=== PATIENT | female | born 1985 | race Caucasian/White ===

== ENCOUNTER 2017-02-01 20:04 | Observation (INO) ==
--- NOTE | 2017-02-01 19:04 | OB/GYN Progress Note ---
Date of Encounter: 02/01/17 Time of Encounter: 19:03 - Assessment and Plan (1) Anemia during Current Visit: Yes Status: Acute Patient presenting with anemia, with indications for treatment Ordered Type and Screen Plan for transfusion (2) Non-stress test reactive on surveillance Current Visit: Yes Status: Acute (3) 28 weeks gestation of Current Visit: Yes Status: Acute Subjective - Subjective Principal diagnosis: Anemia Interval history: Ms Crum is a 31 yo F at 28 weeks and 6 days presenting due to a Hgb of 6.3 in office and subsequent evaluation for blood transfusion candidate.
--- NOTE | 2017-02-01 19:58 | Discharge Summary ---
Date of Encounter: 02/01/17 Time of Encounter: 20:27 - Discharge Diagnosis (1) Anemia during Priority: Primary Status: Acute Comments: Transfuse 2 units PRBCs and discharge home when complete. Follow up with hematology as scheduled on Saturday. (2) 28 weeks gestation of Priority: Secondary Status: Acute Comments: Follow up with routine care as scheduled (3) Non-stress test reactive on surveillance Priority: Secondary Status: Acute Comments: Reactive NST for gestational age. - Discharge Medications Home Medications: Buspirone HCl [Buspar] 10 mg PO DAILY 02/01/17 [History] Citalopram [CeleXA] 20 mg PO BID 02/01/17 [History] Cyclobenzaprine 10 mg PO DAILY 02/01/17 [History] Ferrous Sulfate [Iron] 325 mg PO BID 02/01/17 [History] Vit #108/Iron/FA [ One Tablet] 1 tab PO DAILY 02/01/17 [History ] Promethazine [Phenergan] 25 mg PO Q6HR 02/01/17 [History] Allergies/Adverse Reactions: Allergies No Known Allergies Allergy (Verified 02/01/17 19:38) Date of admission: 02/01/17 18:41 Discharging clinician: Hilda Goldberg Anticipated date of discharge: 02/01/17 - Patient Status Disposition: Home, Self-Care Condition: Good Functional capacity at discharge: independent ambulation Overall status at discharge: patient is back to baseline - Discharge Instructions Follow Up With: Katherine Glover CNM [Advanced Practice Nurse] - London Bella MD [Partnered Physician] - 02/05/17 2:20 pm - Diet and Activity Activity: resume usual activities as tolerated Diet: regular diet Hospital Course [employer] Time Attestation: Total time spent providing and/or coordinating discharge services: Time Spent: Less than 30 minutes Exam - Constitutional General appearance IM: cooperative, A&O X 3, pleasant - Respiratory Respiratory exam: Present: CTAB - Cardiovascular Cardiovascular exam IM: Present: RRR, +S1, +S2 - GI/Abdominal GI/Abdominal exam IM: normal bowel sounds - Additional comments: Uterus appropriate for gestational age FHTs 130-140's with moderate variability and 10x10 accels. Reactive Tracing - Extremities Exam Extremities exam IM: Present: normal capillary refill, normal inspection, radial pulses palpable and symetrical - Neurological Exam Neurological exam: alert, oriented X3, reflexes normal - VTE Reasons for not Prescribing Prophylaxis: Treatment not Indicated - Low risk for VTE
[2017-02-02 04:18] VITALS: BP 97/58
== END 2017-02-02 04:20 | disposition home or self-care (01) ==
LOC: 1NENULAB → 1NENUOBS 20:04
PROVIDERS: ADMIT Advanced Practice Midwife; ATTEND Advanced Practice Midwife

== ENCOUNTER → 2017-03-04 14:48 | Observation (INO) ==
[2017-03-04 12:49] LABS: Monocytes % 9.1 %
[2017-03-04 12:53] LABS: Basophils % 0.4 %; Eosinophils # 0.1 K/mcL (0.0-0.6); Eosinophils % 1.1 %; Hematocrit 31.2 % (35.3-44.9); Hemoglobin 9.2 g/dL (11.5-15.4); Immature Granulocytes % 0.4 % (0-4); Immature Platelets 7.2 % (1.1-6.1); Lymphocytes # 1.3 K/mcL (0.6-4.6); Lymphocytes % 15.7 %; Mean Corpuscular HGB Conc 29.5 g/dL (31.6-35.5); Mean Corpuscular Hemoglobin 23.5 pg (28.0-33.3); Mean Corpuscular Volume 79.8 fL (83.0-100.0); Mean Platelet Volume 9.8 fL (9.4-12.4); Monocytes # 0.8 K/mcL (0.0-1.3); Neutrophils # 6.2 K/mcL (1.6-8.9); Platelet Count 283 K/mcL (140-400); Red Blood Count 3.91 M/mcL (3.82-4.97); Red Cell Distribution Width 24.2 % (11.5-14.5); Segmented Neutrophils % 73.3 %
[2017-03-04 12:59] LABS: Protein/Creatinine Ratio,Urine 0.13 mg/mg (0-0.20)
--- NOTE | 2017-03-04 13:17 | OB/GYN Progress Note ---
Date of Encounter: 03/04/17 Time of Encounter: 13:11 - Assessment and Plan (1) Headache in Current Visit: Yes Status: Acute BP has been normal 120/71 is highest pressure. PIH panel shows known anemia Hgb 9.2 and elevated AST/ALT. Discussed with Dr. Guzman who personally evaluated the patient. Pt may be discharged, but needs follow up labs in 1 week and needs to be seen by MFM for consult and evaluation OMAR, NST and MD visit this week. Qualifiers: Trimester: third trimester Qualified Code(s): O26.893 - Other specified related conditions, third trimester; R51 - Headache (2) 33 weeks gestation of Current Visit: Yes Status: Acute Subjective - Subjective Interval history: 33+2 presents to triage from office for PIH workup. Pt states she has been having headaches with visual changes over the last few weeks, most recently this morning. Pt states currently does not have headache. Reports good movement, denies vaginal bleeding, contractions, leaking of fluid, abdominal or RUQ pain. Antepartum ROS: movement normal, no loss of fluid, no vaginal bleeding, no contractions Objective - Vital Signs Vital Signs: Intake and Output 03/03/17 03/04/17 03/04/17 23:59 07:59 15:59 Other: Weight 83.7 kg Patient Weight 03/04/17 23:59 Weight 83.7 kg - Exam FHR: auscultation normal FHR comments: Baseline 125 Auscultation: bilateral: normal Abdomen: Present: normal appearance Uterus: Present: normal Comments: +1 DTR - Labs Labs: Abnormal lab results Hgb 9.2 g/dL (11.5-15.4) L 03/04/17 12:40 Hct 31.2 % (35.3-44.9) L 03/04/17 12:40 MCV 79.8 fL (83.0-100.0) L 03/04/17 12:40 MCH 23.5 pg (28.0-33.3) L 03/04/17 12:40 MCHC 29.5 g/dL (31.6-35.5) L 03/04/17 12:40 RDW 24.2 % (11.5-14.5) H 03/04/17 12:40 Immature Plt Fraction 7.2 % (1.1-6.1) H 03/04/17 12:40 Urine Total Protein 16 mg/dL (1-14) H 03/04/17 12:10
[2017-03-04 13:20] LABS: Alanine Aminotransferase 90 Units/L (0-55); Aspartate Amino Transferase 66 Units/L (5-34); BUN/Creatinine Ratio 11 (6-26); Blood Urea Nitrogen 7 mg/dL (7-20); Lactate Dehydrogenase 170 Units/L (159-327); Uric Acid 3.1 mg/dL (2.6-6.0); eGFR For African Americans > 60 (> 60); eGFR For Non-African Americans > 60 (> 60)
== END | disposition home or self-care (01) ==
LOC: 1NENULAB
PROVIDERS: ADMIT Student in an Organized Health Care Education/Training Program; ATTEND Student in an Organized Health Care Education/Training Program

== ENCOUNTER → 2017-03-07 16:20 | Observation (INO) ==
[2017-03-07 11:14] LABS: Bilirubin,Urine Small (Negative); Blood,Urine Negative (Negative); Color,Urine Dark Yellow (Yellow); Glucose,Urine (UA) 500 mg/dL (Normal); Ketones,Urine Negative (Negative); Leukocyte Esterase,Urine Moderate (Negative); Nitrite,Urine Negative (Negative); PH,Urine 5.5 pH Units (5.0-8.0); Protein,Urine Negative (Neg-Trace); Specific Gravity,Urine > 1.030 (1.010-1.025); Urobilinogen,Urine Normal (Normal)
[2017-03-07 11:15] LABS: Bacteria,Urine Few per hpf (None-Few); Hyaline Casts,Urine Few per lpf (None-Few); RBC,Urine 0-3 per hpf (0-3); Squamous Epithelial Cell,Urine Many per lpf (None-Few)
[2017-03-07 11:21] LABS: Clarity,Urine Hazy (Clear)
[2017-03-07 11:29] LABS: Mucus,Urine Few (Few)
[2017-03-07 11:30] LABS: Amorphous Sediment,Urine Few (Few)
--- NOTE | 2017-03-07 11:30 | OB/GYN Progress Note ---
Date of Encounter: 03/07/17 Time of Encounter: 11:26 - Assessment and Plan (1) Gestational diabetes mellitus (GDM) affecting Current Visit: Yes Status: Acute diet controlled (2) 33 weeks gestation of Current Visit: No Status: Acute admitted for labor evaluation (3) Anemia during Current Visit: No Status: Acute will repeat hgb (4) Non-stress test reactive on surveillance Current Visit: No Status: Acute baseline 135 bpm Subjective - Subjective Principal diagnosis: labor evaluation Interval history: Patient is 31 y/o at 33w5d presents to labor and delivery from OB office for observation. Patient was in office for NST for GDM that is diet controlled. Patient reports is also complicated with Anemia and Polyhydramnios. Patient has had a blood transfusion. Patient reports HGB was 9 after transfusion. While in office patient reported pink tinged discharged yesterday with contractions. Patient denies LOF and reports +FM. Patient states she just finished macrobid for UTI. Antepartum ROS: movement normal, contractions, no loss of fluid Objective - Exam FHR: auscultation normal, category 1 FHR comments: 135 bpm moderate variability +15x15 accels no decels noted. Cat. 1 tracing irregular contractions noted. Auscultation: bilateral: normal Abdomen: Present: normal appearance, soft, gravid Uterus: Present: normal Cervical dilation: 1 Cervix effacement: thick station: -3 Comments: beige colored discharged noted on glove after exam. - Labs Labs: Abnormal lab results Urine Clarity Hazy (Clear) A 03/07/17 11:00 Ur Specific [place] > 1.030 (1.010-1.025) H 03/07/17 11:00 Urine Glucose (UA) 500 mg/dL (Normal) H 03/07/17 11:00 Urine Bilirubin Small (Negative) H 03/07/17 11:00 Ur Leukocyte Esterase Moderate (Negative) H 03/07/17 11:00
[2017-03-07 12:16] LABS: Basophils % 0.4 %; Eosinophils # 0.1 K/mcL (0.0-0.6); Eosinophils % 0.9 %; Hematocrit 33.5 % (35.3-44.9); Hemoglobin 9.7 g/dL (11.5-15.4); Immature Granulocytes % 0.5 % (0-4); Lymphocytes # 1.5 K/mcL (0.6-4.6); Lymphocytes % 17.4 %; Mean Corpuscular Hemoglobin 22.8 pg (28.0-33.3); Mean Corpuscular Volume 78.8 fL (83.0-100.0); Mean Platelet Volume 10.5 fL (9.4-12.4); Monocytes # 0.9 K/mcL (0.0-1.3); Monocytes % 10.9 %; Neutrophils # 5.9 K/mcL (1.6-8.9); Platelet Count 249 K/mcL (140-400); Red Blood Count 4.25 M/mcL (3.82-4.97); Red Cell Distribution Width 23.3 % (11.5-14.5); Segmented Neutrophils % 69.9 %
[2017-03-07 12:43] LABS: Anisocytosis 1+ (Not Present); Platelet Estimate Normal (Normal); Polychromasia 1+ (Not Present)
[2017-03-07 12:44] LABS: Hypochromasia Present (Not Present)
--- NOTE | 2017-03-07 16:11 | Discharge Summary ---
Date of Encounter: 03/07/17 Time of Encounter: 16:12 - Discharge Diagnosis (1) Gestational diabetes mellitus (GDM) affecting Priority: Secondary Status: Acute (2) 33 weeks gestation of Priority: Primary Status: Acute Comments: betamethasone given will repeat dose in 24 hours (3) Anemia during Priority: Secondary Status: Acute (4) Non-stress test reactive on surveillance Priority: Secondary Status: Acute - Discharge Medications Home Medications: Buspirone HCl [Buspar] 10 mg PO DAILY 02/01/17 [History] Citalopram [CeleXA] 20 mg PO BID 02/01/17 [History] Ferrous Sulfate [Iron] 325 mg PO BID 02/01/17 [History] Vit #108/Iron/FA [ One Tablet] 1 tab PO DAILY 02/01/17 [History ] Promethazine [Phenergan] 25 mg PO Q6HR 02/01/17 [History] Cyclobenzaprine [Flexeril] 10 mg PO HS 02/05/17 [History] Famotidine [Pepcid] 20 mg PO BID 02/05/17 [History] Rizatriptan Benzoate [Maxalt] 5 mg PO PRN PRN 02/05/17 [History] Allergies/Adverse Reactions: 3 Allergy/AdvReac Type Severity Reaction Status Date / Time No Known Allergies Allergy Verified 02/01/17 19:38 Data Procedures and tests throughout hospitalization: Laboratory Tests 03/07/17 03/07/17 11:00 12:09 WBC 8.5 RBC 4.25 Hgb 9.7 L Hct 33.5 L MCV 78.8 L MCH 22.8 L MCHC 29.0 L RDW 23.3 H Plt Count 249 MPV 10.5 Immature Gran % 0.5 Seg Neutrophils % 69.9 Lymphocytes % 17.4 Monocytes % 10.9 Eosinophils % 0.9 Basophils % 0.4 Neutrophils # 5.9 Lymphocytes # 1.5 Monocytes # 0.9 Eosinophils # 0.1 Basophils # 0.0 Platelet Estimate Normal Polychromasia 1+ A Hypochromasia Present A Anisocytosis 1+ A Urine Color Dark Yellow Urine Clarity Hazy A Urine pH 5.5 Ur Specific [place] > 1.030 H Urine Protein Negative Urine Glucose (UA) 500 H Urine Ketones Negative Urine Blood Negative Urine Nitrite Negative Urine Bilirubin Small H Urine Urobilinogen Normal Ur Leukocyte Esterase Moderate H Urine Microscopic RBC 0-3 Urine Microscopic WBC 5-15 H Ur Squamous Epith Cells Many H Amorphous Sediment Few Urine Bacteria Few Hyaline Casts Few Urine Mucus Few Urine Yeast Test Not Performed Ur Culture Indicated? YES A Labs on day of discharge: Labs from last 24 hours 03/07/17 03/07/17 12:09 11:00 WBC 8.5 RBC 4.25 Hgb 9.7 L Hct 33.5 L MCV 78.8 L MCH 22.8 L MCHC 29.0 L RDW 23.3 H Plt Count 249 MPV 10.5 Immature Gran % 0.5 Seg Neutrophils % 69.9 Lymphocytes % 17.4 Monocytes % 10.9 Eosinophils % 0.9 Basophils % 0.4 Neutrophils # 5.9 Lymphocytes # 1.5 Monocytes # 0.9 Eosinophils # 0.1 Basophils # 0.0 Platelet Estimate Normal Polychromasia 1+ A Hypochromasia Present A Anisocytosis 1+ A Urine Color Dark Yellow Urine Clarity Hazy A Urine pH 5.5 Ur Specific [place] > 1.030 H Urine Protein Negative Urine Glucose (UA) 500 H Urine Ketones Negative Urine Blood Negative Urine Nitrite Negative Urine Bilirubin Small H Urine Urobilinogen Normal Ur Leukocyte Esterase Moderate H Urine Microscopic RBC 0-3 Urine Microscopic WBC 5-15 H Ur Squamous Epith Cells Many H Amorphous Sediment Few Urine Bacteria Few Hyaline Casts Few Urine Mucus Few Urine Yeast Test Not Performed Ur Culture Indicated? YES A Date of admission: 03/07/17 10:28 Primary care physician: Renae Kahn CNP Discharging clinician: Irma Costello Anticipated date of discharge: 03/07/17 - Patient Status Disposition: Home, Self-Care Condition: Good Functional capacity at discharge: independent ambulation - Discharge Instructions Follow Up With: Renae Kahn CNP [Primary Care Provider] - Courtney Redmond MD [Partnered Physician] - - Diet and Activity Activity: increase activity as tolerated Hospital Course [employer] Time Attestation: Total time spent providing and/or coordinating discharge services: Time Spent: Less than 30 minutes Exam - Constitutional Vitals: Temp Pulse Resp 98.1 F 113 20 03/07/17 11:21 03/07/17 11:21 03/07/17 11:21 General appearance IM: A&O X 3, pleasant, answers questions appropriately - Respiratory Respiratory exam: Present: CTAB - Cardiovascular Cardiovascular exam IM: Present: RRR, +S1, +S2 - Other Additional findings: FHR 135 bpm moderate variability +15x15 accels no decels noted. Cat. 1 tracing. Occasional irritability and contractions noted. - VTE Reasons for not Prescribing Prophylaxis: Treatment not Indicated - Low risk for VTE
[~2017-03-07 16:20] MED LIST: 0.9 % Sodium Chloride 1,000 ML IVC ONE; Betamethasone Acet/SodPhos 6 MG/ML MDV IM SCH; Ringers Solution, Lactated 2,000 ML ONE; Terbutaline 1 MG/ML VIAL SQ ONE
== END | disposition home or self-care (01) ==
LOC: 1NENULAB
PROVIDERS: ADMIT Obstetrics & Gynecology; ATTEND Obstetrics & Gynecology

== ENCOUNTER → 2017-03-13 18:38 | Observation (INO) ==
[2017-03-13 17:51] LABS: Basophils % 0.2 %; Eosinophils # 0.1 K/mcL (0.0-0.6); Eosinophils % 1.1 %; Hemoglobin 9.4 g/dL (11.5-15.4); Immature Granulocytes % 0.3 % (0-4); Lymphocytes # 2.6 K/mcL (0.6-4.6); Lymphocytes % 21.2 %; Mean Corpuscular HGB Conc 29.4 g/dL (31.6-35.5); Mean Corpuscular Hemoglobin 22.9 pg (28.0-33.3); Mean Corpuscular Volume 77.9 fL (83.0-100.0); Mean Platelet Volume 11.7 fL (9.4-12.4); Monocytes % 7.9 %; Neutrophils # 8.5 K/mcL (1.6-8.9); Nucleated Red Blood Cells 0.2 /100 WBC (0); Platelet Count 304 K/mcL (140-400); Red Blood Count 4.11 M/mcL (3.82-4.97); Red Cell Distribution Width 22.4 % (11.5-14.5); Segmented Neutrophils % 69.3 %
[2017-03-13 17:57] LABS: Bilirubin,Urine Negative (Negative); Blood,Urine Negative (Negative); Clarity,Urine Cloudy (Clear); Color,Urine Yellow (Yellow); Glucose,Urine (UA) Normal (Normal); Ketones,Urine Negative (Negative); Leukocyte Esterase,Urine Small (Negative); Nitrite,Urine Negative (Negative); PH,Urine 5.5 pH Units (5.0-8.0); Protein,Urine Negative (Neg-Trace); Specific Gravity,Urine 1.027 (1.010-1.025); Urobilinogen,Urine Normal (Normal)
[2017-03-13 18:02] LABS: Amphetamine Screen,Urine Negative ng/mL (Cutoff=1000); Bacteria,Urine Few per hpf (None-Few); Barbiturate Screen,Urine Negative ng/mL (Cutoff=200); Benzodiazepines Screen,Urine Negative ng/mL (Cutoff=200); Cannabinoid Screen,Urine Negative ng/mL (Cutoff = 50); Cocaine Screen,Urine Negative ng/mL (Cutoff= 300); Creatinine,Urine 127 mg/dL; Hyaline Casts,Urine None Seen per lpf (None-Few); Opiate Screen,Urine Negative ng/mL (Cutoff=300); Phencyclidine Screen,Urine Negative ng/mL (Cutoff=25); RBC,Urine 0-3 per hpf (0-3); Squamous Epithelial Cell,Urine Many per lpf (None-Few)
[2017-03-13 18:04] VITALS: BP 130/74
[2017-03-13 18:06] LABS: Alanine Aminotransferase 49 Units/L (0-55); Aspartate Amino Transferase 31 Units/L (5-34); BUN/Creatinine Ratio 17 (6-26); Blood Urea Nitrogen 12 mg/dL (7-20); Lactate Dehydrogenase 191 Units/L (159-327); Uric Acid 3.5 mg/dL (2.6-6.0); eGFR For African Americans > 60 (> 60); eGFR For Non-African Americans > 60 (> 60)
--- NOTE | 2017-03-13 18:21 | OB/GYN Progress Note ---
Date of Encounter: 03/13/17 Time of Encounter: 18:18 - Assessment and Plan (1) Elevated blood pressure affecting in third trimester, antepartum Current Visit: Yes Status: Acute All PIH labs negative, liver enzymes have returned to normal limits from last week's elevated results. Will discharge home with labor and PIH precautions. (2) 34 weeks gestation of Current Visit: Yes Status: Acute (3) Non-stress test reactive on surveillance Current Visit: No Status: Acute Baseline 135 Subjective - Subjective Interval history: 34+4 presents to triage following elevated blood pressures in office. Pt also complains of headache, visual changes (seeing TV static) and RUQ discomfort. On triage assessment on March 04 patient was noted to have elevated liver enzymes. Patient reports good movement and denies contractions, vaginal bleeding, or leaking of fluid Patient seen today by maternal medicine for elevated liver enzymes and polyhydramnios, previous LEVON greater than 30, LEVON today 24.8 Antepartum ROS: movement normal, no loss of fluid, no vaginal bleeding, no contractions Objective - Vital Signs Vital Signs: Vital Signs Temp Pulse Resp BP 03/13/17 17:32 97.8 F 88 16 130/74 Intake and Output 03/13/17 03/13/17 03/13/17 07:59 15:59 23:59 Other: Weight 84.8 kg Patient Weight 03/13/17 23:59 Weight 84.8 kg - Exam FHR: auscultation normal FHR comments: Baseline 135 Auscultation: bilateral: normal Abdomen: Present: normal appearance, soft, gravid Uterus: Present: normal - Labs Labs: Abnormal lab results WBC 12.2 K/mcL (4.3-11.1) H 03/13/17 17:37 Hgb 9.4 g/dL (11.5-15.4) L 03/13/17 17:37 Hct 32.0 % (35.3-44.9) L 03/13/17 17:37 MCV 77.9 fL (83.0-100.0) L 03/13/17 17:37 MCH 22.9 pg (28.0-33.3) L 03/13/17 17:37 MCHC 29.4 g/dL (31.6-35.5) L 03/13/17 17:37 RDW 22.4 % (11.5-14.5) H 03/13/17 17:37 Nucleated RBCs/100 WBC 0.2 /100 WBC (0) H 03/13/17 17:37 Urine Clarity Cloudy (Clear) A 03/13/17 17:37 Ur Specific [place] 1.027 (1.010-1.025) H 03/13/17 17:37 Ur Leukocyte Esterase Small (Negative) H 03/13/17 17:37 Urine Microscopic WBC 5-15 per hpf (0-3) H 03/13/17 17:37 Ur Squamous Epith Cells Many per lpf (None-Few) H 03/13/17 17:37 Ur Culture Indicated? YES (NO) A 03/13/17 17:37
== END | disposition home or self-care (01) ==
LOC: 1NENULAB
PROVIDERS: ADMIT Obstetrics & Gynecology; ATTEND Obstetrics & Gynecology

== ENCOUNTER 2017-03-27 15:23 | Observation (INO) ==
[2017-03-27 15:55] LABS: Eosinophils % 0.5 %
[2017-03-27 15:56] LABS: Basophils % 0.5 %; Hemoglobin 8.9 g/dL (11.5-15.4); Immature Granulocytes % 0.3 % (0-4); Lymphocytes # 1.9 K/mcL (0.6-4.6); Lymphocytes % 21.4 %; Mean Corpuscular HGB Conc 29.7 g/dL (31.6-35.5); Mean Corpuscular Hemoglobin 23.1 pg (28.0-33.3); Mean Corpuscular Volume 77.7 fL (83.0-100.0); Mean Platelet Volume 10.7 fL (9.4-12.4); Monocytes # 0.8 K/mcL (0.0-1.3); Monocytes % 8.9 %; Nucleated Red Blood Cells 0.3 /100 WBC (0); Platelet Count 249 K/mcL (140-400); Red Blood Count 3.86 M/mcL (3.82-4.97); Red Cell Distribution Width 21.4 % (11.5-14.5); Segmented Neutrophils % 68.4 %
[2017-03-27 16:08] LABS: Alanine Aminotransferase 33 Units/L (0-55); Aspartate Amino Transferase 42 Units/L (5-34); BUN/Creatinine Ratio 16 (6-26); Blood Urea Nitrogen 12 mg/dL (7-20); Lactate Dehydrogenase 173 Units/L (159-327); eGFR For African Americans > 60 (> 60); eGFR For Non-African Americans > 60 (> 60)
[2017-03-27 16:19] LABS: Anisocytosis 2+ (Not Present); Hypochromasia Present (Not Present); Platelet Estimate Normal (Normal)
[2017-03-27 16:35] LABS: Amphetamine Screen,Urine Negative ng/mL (Cutoff=1000); Barbiturate Screen,Urine Negative ng/mL (Cutoff=200); Benzodiazepines Screen,Urine Negative ng/mL (Cutoff=200); Cannabinoid Screen,Urine Negative ng/mL (Cutoff = 50); Cocaine Screen,Urine Negative ng/mL (Cutoff= 300); Opiate Screen,Urine Negative ng/mL (Cutoff=300); Phencyclidine Screen,Urine Negative ng/mL (Cutoff=25)
[2017-03-27 16:38] LABS: Protein/Creatinine Ratio,Urine 0.13 mg/mg (0-0.20)
--- NOTE | 2017-03-27 19:18 | OB/GYN Progress Note ---
Date of Encounter: 03/27/17 Time of Encounter: 19:16 - Assessment and Plan (1) 36 weeks gestation of Status: Acute (2) Elevated liver enzymes Status: Acute Patient continues to have variable levels during . AST is elevated today but with higher earlier in . Labs reviewed with Dr. Monte (3) Elevated blood pressure affecting in third trimester, antepartum Status: Acute Patient seen by MFM today recommend delivery at [address] Labs reviewed [address] Monte area plan of care for patient to come in tomorrow to labor and delivery triage for NST and redraw PIH labs. Induction of labor scheduled for Saturday morning's exam. Consents signed and reviewed with patient (4) Headache in Status: Acute Qualifiers: Trimester: third trimester Qualified Code(s): O26.893 - Other specified related conditions, third trimester; R51 - Headache Subjective - Subjective Interval history: 36+4 weeks gestation presents to triage from office for an evaluation of elevated blood pressures in the office. Patient reports she continues to have headaches unrelieved by Tylenol, and blurry vision and other visual changes. Patient states she has also started to have right upper quadrant pain and discomfort over the last 2-3 days. Patient reports good movement with occasional contractions, but nothing regular, or increasing in intensity. Patient with occasional pink spotting, but nothing consistent. Denies leaking of fluid. Antepartum ROS: vaginal bleeding, movement normal, contractions, no loss of fluid Objective - Vital Signs Vital Signs: Intake and Output 03/27/17 03/27/17 03/27/17 07:59 15:59 23:59 Other: Weight 85.6 kg Patient Weight 03/27/17 23:59 Weight 85.6 kg - Exam FHR: auscultation normal Auscultation: bilateral: normal Abdomen: Present: normal appearance, soft, gravid Uterus: Present: normal Cervical dilation: 3/long/-2 - Labs Labs: Abnormal lab results Hgb 8.9 g/dL (11.5-15.4) L 03/27/17 15:45 Hct 30.0 % (35.3-44.9) L 03/27/17 15:45 MCV 77.7 fL (83.0-100.0) L 03/27/17 15:45 MCH 23.1 pg (28.0-33.3) L 03/27/17 15:45 MCHC 29.7 g/dL (31.6-35.5) L 03/27/17 15:45 RDW 21.4 % (11.5-14.5) H 03/27/17 15:45 Nucleated RBCs/100 WBC 0.3 /100 WBC (0) H 03/27/17 15:45 Hypochromasia Present (Not Present) A 03/27/17 15:45 Anisocytosis 2+ (Not Present) A 03/27/17 15:45 AST 42 Units/L (5-34) H 03/27/17 15:45 Urine Total Protein 24 mg/dL (1-14) H 03/27/17 15:45
== END 2017-03-27 17:35 | disposition home or self-care (01) ==
LOC: 1NENULAB
PROVIDERS: ADMIT Obstetrics & Gynecology; ATTEND Obstetrics & Gynecology

== ENCOUNTER 2017-03-28 15:40 | Observation (INO) ==
[2017-03-28 17:06] LABS: Hemoglobin 8.6 g/dL (11.5-15.4); Immature Granulocytes % 0.3 % (0-4); Mean Corpuscular Volume 77.8 fL (83.0-100.0); Mean Platelet Volume 11.2 fL (9.4-12.4); Red Cell Distribution Width 21.3 % (11.5-14.5)
[2017-03-28 17:15] LABS: Basophils % 0.4 %; Eosinophils # 0.1 K/mcL (0.0-0.6); Eosinophils % 0.8 %; Hematocrit 29.4 % (35.3-44.9); Lymphocytes # 2.1 K/mcL (0.6-4.6); Lymphocytes % 22.4 %; Mean Corpuscular HGB Conc 29.3 g/dL (31.6-35.5); Mean Corpuscular Hemoglobin 22.8 pg (28.0-33.3); Monocytes # 0.8 K/mcL (0.0-1.3); Monocytes % 8.6 %; Neutrophils # 6.3 K/mcL (1.6-8.9); Platelet Count 237 K/mcL (140-400); Red Blood Count 3.78 M/mcL (3.82-4.97); Segmented Neutrophils % 67.5 %
[2017-03-28 17:22] LABS: Alanine Aminotransferase 32 Units/L (0-55); Aspartate Amino Transferase 38 Units/L (5-34); BUN/Creatinine Ratio 16 (6-26); Blood Urea Nitrogen 12 mg/dL (7-20); Lactate Dehydrogenase 185 Units/L (159-327); Uric Acid 5.7 mg/dL (2.6-6.0); eGFR For African Americans > 60 (> 60); eGFR For Non-African Americans > 60 (> 60)
[2017-03-28 17:44] LABS: Platelet Estimate Normal (Normal)
[2017-03-28 17:45] LABS: Anisocytosis 2+ (Not Present); Hypochromasia Present (Not Present)
[2017-03-28 18:09] LABS: Amphetamine Screen,Urine Negative ng/mL (Cutoff=1000); Barbiturate Screen,Urine Negative ng/mL (Cutoff=200); Benzodiazepines Screen,Urine Negative ng/mL (Cutoff=200); Cannabinoid Screen,Urine Negative ng/mL (Cutoff = 50); Cocaine Screen,Urine Negative ng/mL (Cutoff= 300); Creatinine,Urine 178 mg/dL; Opiate Screen,Urine Negative ng/mL (Cutoff=300); Phencyclidine Screen,Urine Negative ng/mL (Cutoff=25)
--- NOTE | 2017-03-28 18:24 | OB/GYN Progress Note ---
Date of Encounter: 03/28/17 Time of Encounter: 18:22 - Assessment and Plan (1) Elevated blood pressure affecting in third trimester, antepartum Current Visit: No Status: Acute Blood pressure normal today. (2) Elevated liver enzymes Current Visit: No Status: Acute AST improved from yesterday. (3) Headache in Current Visit: No Status: Acute Pt has medication for migraines at home that usually helps. Qualifiers: Trimester: third trimester Qualified Code(s): O26.893 - Other specified related conditions, third trimester; R51 - Headache (4) Non-stress test reactive on surveillance Current Visit: No Status: Acute (5) 36 weeks gestation of Current Visit: No Status: Acute Subjective - Subjective Interval history: Pt presenting to follow-up [facility] labs done yesterday. She had mildly elevated AST and uric acid was higher than it was previously. She has had a headache and some vision changes for quite some time but she has a history of migraines. Today she also reports some contractions. No other complaints. Good FM. Antepartum ROS: movement normal, contractions, no loss of fluid, no vaginal bleeding Objective - Vital Signs Vital Signs: Intake and Output 03/28/17 03/28/17 03/28/17 07:59 15:59 23:59 Other: Weight 85.6 kg Patient Weight 03/28/17 23:59 Weight 85.6 kg - Exam FHR: category 1 FHR comments: NST reactive. Auscultation: bilateral: normal Abdomen: Present: soft, gravid. Absent: tenderness Uterus: Absent: tenderness Cervical dilation: 3cm, unchanged from last exam Cervix effacement: 60 station: bolottable Comments: 2+ reflexes, no clonus on my exam. - Labs Labs: Abnormal lab results RBC 3.78 M/mcL (3.82-4.97) L 03/28/17 16:45 Hgb 8.6 g/dL (11.5-15.4) L 03/28/17 16:45 Hct 29.4 % (35.3-44.9) L 03/28/17 16:45 MCV 77.8 fL (83.0-100.0) L 03/28/17 16:45 MCH 22.8 pg (28.0-33.3) L 03/28/17 16:45 MCHC 29.3 g/dL (31.6-35.5) L 03/28/17 16:45 RDW 21.3 % (11.5-14.5) H 03/28/17 16:45 Hypochromasia Present (Not Present) A 03/28/17 16:45 Anisocytosis 2+ (Not Present) A 03/28/17 16:45 AST 38 Units/L (5-34) H 03/28/17 16:45 Urine Total Protein 17 mg/dL (1-14) H 03/28/17 16:45
== END 2017-03-28 18:25 | disposition home or self-care (01) ==
LOC: 1NENULAB
PROVIDERS: ADMIT Student in an Organized Health Care Education/Training Program; ATTEND Student in an Organized Health Care Education/Training Program

== ENCOUNTER 2017-03-29 17:10 | Inpatient (IN) ==
[~2017-03-29 17:10] MED LIST changes: -0.9 % Sodium Chloride 1,000 ML IVC ONE; -Betamethasone Acet/SodPhos 6 MG/ML MDV IM SCH; +Famotidine 20 MG/2 ML VIAL IVP PRN; +Naloxone 0.4 MG/ML INJ IVP PRN; +Ondansetron 4 MG/2 ML VIAL IVP PRN; -Ringers Solution, Lactated 2,000 ML ONE; -Terbutaline 1 MG/ML VIAL SQ ONE
[2017-03-29] MEDS ORDERED: Ringers Solution, Lactated 1,000 ML IVC SCH (17:15)
[2017-03-29] MEDS ORDERED: *HR* Nalbuphine 20 MG/ML AMPUL IVP PRN (17:16)
[2017-03-29] MEDS ORDERED: Penicillin G Potassium 5,000,000 UNIT in D5% in Water (Mini-Bag+) 100 ML IVPB ONE (17:58)
[2017-03-29 18:00] LABS: Basophils % 0.4 %; Eosinophils # 0.1 K/mcL (0.0-0.6); Eosinophils % 0.7 %; Hematocrit 30.4 % (35.3-44.9); Hemoglobin 8.8 g/dL (11.5-15.4); Immature Granulocytes % 0.2 % (0-4); Immature Platelets 11.6 % (1.1-6.1); Lymphocytes # 1.8 K/mcL (0.6-4.6); Lymphocytes % 21.5 %; Mean Corpuscular HGB Conc 28.9 g/dL (31.6-35.5); Mean Corpuscular Hemoglobin 22.5 pg (28.0-33.3); Mean Corpuscular Volume 77.7 fL (83.0-100.0); Mean Platelet Volume 11.2 fL (9.4-12.4); Monocytes # 0.9 K/mcL (0.0-1.3); Monocytes % 11.1 %; Neutrophils # 5.5 K/mcL (1.6-8.9); Nucleated Red Blood Cells 0.2 /100 WBC (0); Platelet Count 260 K/mcL (140-400); Red Blood Count 3.91 M/mcL (3.82-4.97); Red Cell Distribution Width 21.3 % (11.5-14.5); Segmented Neutrophils % 66.1 %
[2017-03-29 18:17] LABS: Anisocytosis 3+ (Not Present); Hypochromasia Present (Not Present)
[2017-03-29 18:18] LABS: Platelet Estimate Normal (Normal)
[2017-03-29] MEDS ORDERED: EPHEDrine 50 MG/ML VIAL IVP PRN (18:50)
[2017-03-29] MEDS ORDERED: Ringers Solution, Lactated 500 ML IVC ONE (18:50)
--- NOTE | 2017-03-29 18:50 | Anesthesia Evaluation PreOp ---
Date of Encounter: 03/29/17 Time of Encounter: 18:48 - Past History Planned Operation: CANDICE Cardiac History: Denies any Significant Hx Pulmonary History: Denies Any Significant HX ENROLLED AGENT History: Denies Any Significant HX Other Medical History: Other (anemia. hgb as low as 6 during this . received 2 units pRBCs 3 months ago.) Anesthesia History: No Prior Anesthetic Complications : Yes (36.6) Alcohol Use: none Drug use: none Medications and Allergies Buspirone HCl [Buspar] 10 mg PO BID 02/01/17 [History] Citalopram [CeleXA] 20 mg PO BID 02/01/17 [History] Ferrous Sulfate [Iron] 325 mg PO BID 02/01/17 [History] Vit #108/Iron/FA [ One Tablet] 1 tab PO DAILY 02/01/17 [History ] Promethazine [Phenergan] 25 mg PO Q6HR 02/01/17 [History] Cyclobenzaprine [Flexeril] 10 mg PO HS 02/05/17 [History] Famotidine [Pepcid] 20 mg PO BID 02/05/17 [History] Rizatriptan Benzoate [Maxalt] 5 mg PO PRN PRN 02/05/17 [History] 3 Allergy/AdvReac Type Severity Reaction Status Date / Time No Known Allergies Allergy Verified 03/28/17 16:41 - Meds/Allergy Pre-op Review Medications Reviewed: Yes Allergies Reviewed: Yes Beta Blockers on Current Med List: No Anesthesia Results - Labs 03/29/17 17:23 Anesthesia Exam Height: 1.55m Weight: 85.3kg NPO (# of Hours): 8 Pain Scale: 4 Pain Scale Used: Numeric (1 - 10) - HEENT Pupil (Motor): Pupils equal Mallampati: II Teeth: Normal Oral Opening: Greater than 3 - ENROLLED AGENT LOC: Oriented ENROLLED AGENT Motor: Normal RUE, Normal LUE, Normal RLE, Normal LLE, Normal Face ENROLLED AGENT Sensory: Normal: RUE, LUE, RLE, LLE, Face - Cardiac Rhythm: Regular Murmur: None JVD: No Carotid Bruit: No - Pulmonary Breath Sounds: bilateral Clear Respiratory Effort: Symmetrical Anesthesia Assess/Plan ASA Score: 2 Modified [place] Scale for Level of Consciousness: Cooperative, oriented, and tranquil Anesthetic Plan: General (plan b), Regional (plan a) Autologous Blood: Yes Monitoring Plan: Standard Monitors
--- NOTE | 2017-03-29 18:51 | OB/GYN History & Physical ---
Date of Encounter: 03/29/17 Time of Encounter: 18:36 Assessment and Plan (1) Rupture of membranes with clear amniotic fluid Current visit: Yes Status: Acute Admit to labor and delivery for labor GBS positive - prophylaxis started Rubella equivocal - needs MMR prior to discharge Anemia - Type and cross with 2 units on hold Cytotec po for augmenting labor. IV pain control/epidural upon request per policy Anticipate vaginal delivery POC per consult with Dr Wall (2) Anemia during Current visit: Yes Status: Acute Type and cross with 2 units on hold Hemorrhage kit in room for increased risk of PPH (3) 36 weeks gestation of Current visit: Yes Status: Acute (4) Gestational diabetes mellitus (GDM) affecting Current visit: Yes Status: Acute Blood sugar normal upon initial check Continue to monitor for symptoms of hypoglycemia. Accucheck PRN History of Present Illness Chief complaint: Leaking of fluid HPI: Ms. Crum is a 32 year old at 36 weeks and 6 days that presents to labor and delivery with complaints of leaking of fluid that began at 1630 this afternoon. She is a high risk that was complicated by anemia and was given 2 units pRBCs, gestational diabetes, Polyhydramnious, Depression with Celexa use, and Chronic Migraines. The EFW was at 2676g at 34 weeks which was between the 75th and 90th percentiles. GBS positive A negative Hep B, HIV, RPR negative Rubella equivocal Varicella immune Past Med Surg Social Fam HX - Past Medical History Medical history: migraine Psychiatric history: anxiety, depression - Past Surgical History Surgical History: no surgical history - Social History Smoking Status: Former smoker Smokeless Tobacco Status: No Alcohol use: none Drug use: none - Family History Mother Family Member Ethnicity: Non- Living Status: Still Living Hx Family Cardiac Disorders: No Hx Family Respiratory Disorders: No Hx Family Cancer: No Hx Family GI Disorders: No Hx Family Endocrine Disorder: No Hx Family Neuromuscular Disorders: No Hx Family Neurologic Disorders: No Hx Family HEENT Disorders: No Hx Family Autoimmune Disorders: No Obstetrical History - Pregnancies : 3 Para: 2 Term: 2 : 0 Ab's: 0 Livin Medications and Allergies Buspirone HCl [Buspar] 10 mg PO BID 02/01/17 [History] Citalopram [CeleXA] 20 mg PO BID 02/01/17 [History] Ferrous Sulfate [Iron] 325 mg PO BID 02/01/17 [History] Vit #108/Iron/FA [ One Tablet] 1 tab PO DAILY 02/01/17 [History ] Promethazine [Phenergan] 25 mg PO Q6HR 02/01/17 [History] Cyclobenzaprine [Flexeril] 10 mg PO HS 02/05/17 [History] Famotidine [Pepcid] 20 mg PO BID 02/05/17 [History] Rizatriptan Benzoate [Maxalt] 5 mg PO PRN PRN 02/05/17 [History] 3 Allergy/AdvReac Type Severity Reaction Status Date / Time No Known Allergies Allergy Verified 03/28/17 16:41 Review of System OB All systems PM: reviewed and no additional remarkable complaints except as stated Exam - Constitutional Constitutional: well developed, well nourished, no acute distress, average body habitus - HEENT HEENT: Normocephaly, Mucus Membranes Moist - Neck Neck exam: full ROM - Lungs Respiratory exam: CTAB - Cardiovascular Cardiovascular exam: RRR, +S1, +S2 - Breasts Breast: bilateral: normal - Abdomen Abdomen: Present: bowel sounds normal, gravid, non tender - Extremities Extremities exam: normal capillary refill, normal inspection, radial pulses palpable and symmetrical Deep Tendon Reflex Grade: 2+ Normal - Vulva Vulva: bilateral: normal - Vagina Vagina: Present: normal moisture - Cervix Dilation: 3 Effacement: 70 Station: -2 - Uterus Uterus exam: Present: normal size, normal contour. Absent: tender - Anus/Rectum Anus/Rectum: Present: normal perianal skin Results Result Diagrams: 03/29/17 17:23 Abnormal lab results Hgb 8.8 g/dL (11.5-15.4) L 03/29/17 17:23 Hct 30.4 % (35.3-44.9) L 03/29/17 17:23 MCV 77.7 fL (83.0-100.0) L 03/29/17 17:23 MCH 22.5 pg (28.0-33.3) L 03/29/17 17:23 MCHC 28.9 g/dL (31.6-35.5) L 03/29/17 17: RDW 21.3 % (11.5-14.5) H 03/29/17 17:23 Nucleated RBCs/100 WBC 0.2 /100 WBC (0) H 03/29/17 17:23 Immature Plt Fraction 11.6 % (1.1-6.1) H 03/29/17 17:23 Hypochromasia Present (Not Present) A 03/29/17 17:23 Anisocytosis 3+ (Not Present) A 03/29/17 17:23 All other labs normal. - VTE Reasons for not Prescribing Prophylaxis: Treatment not Indicated - Low risk for VTE
[2017-03-29] MEDS ORDERED: Epidural Premix (fent/bupiv) 110 ML EP ONE (18:52)
[2017-03-29] MEDS ORDERED: Epidural Premix (fent/bupiv) 110 ML EP SCH (19:00)
--- NOTE | 2017-03-29 19:31 | Anesthesia Procedures ---
Date of Encounter: 03/29/17 Time of Encounter: 19:29 Procedures: Anesthesia - Epidural/Spinal Patient ID/Chart reviewed: Yes Patient examined: Yes OB Eval: Gestational age: 36.6 OB Eval: : 3 OB Eval: Hx Para: 2 OB Eval: Dilated at (cm): 4 OB Eval: Contractions: Non-stressed pattern Consent Obtained: Yes Supplemental Oxygen: None/Room Air Site Prep: Aseptic Technique, Sterile prep and drape, Povidone-Iodine 1% Patient position: upright Local Anesthetic: Lidocaine 1% Amount of Local Anesthetic used: 3 Touhy Needle Gauge: 18 Touhy Needle Depth (cm): 6 Catheter Depth at Skin (cm): 18 Test Dose (1.5% Lido + Epi): Volume given (mls): 5 Test Dose Result: Negative Loading Dose: Other: 9ml of epidural pharm bag premix solution Loading Dose Administered: Thru Catheter Infusion Med: 0.125% Bupivacaine w/ 2 mcg/ml Fentanyl Infusion Rate (mls/hr): 12 ([id number]) Catheter Secured in Place: Tegaderm, Tape Interspace Used: L4-L5 Loss of Resistance (FRANCHESCA): Yes Blood: No CSF: No Paresthesia: No Procedure: pt tolerated procedure well. no complications. vss. fhr stable 138/95 hr 99 129/86 hr 85 fhr 135
[2017-03-29 19:41] LABS: Amphetamine Screen,Urine Negative ng/mL (Cutoff=1000); Barbiturate Screen,Urine Negative ng/mL (Cutoff=200); Benzodiazepines Screen,Urine Negative ng/mL (Cutoff=200); Cannabinoid Screen,Urine Negative ng/mL (Cutoff = 50); Cocaine Screen,Urine Negative ng/mL (Cutoff= 300); Opiate Screen,Urine Negative ng/mL (Cutoff=300); Phencyclidine Screen,Urine Negative ng/mL (Cutoff=25)
[2017-03-29] MEDS ORDERED: Penicillin G Potassium 2,500,000 UNIT in D5% in Water 100 ML IVPB SCH ×2 (20:00→22:15)
[2017-03-29] MEDS ORDERED: miSOPROStol 25 MCG TABLET VG SCH (20:00)
[2017-03-29] MEDS ORDERED: Oxytocin 20 units/ LR 1000 mL 20 UNIT/1,000 ML BAG IVC ONE (23:26)
--- NOTE | 2017-03-30 00:31 | OB/GYN Procedure Note ---
Delivery - Delivery Date: 03/29/17 Provider: Hilda Goldberg Intrapartum events: none Delivery induction: none Delivery monitor: external FHT, external uterine Anesthesia: epidural Estimated Blood Loss: 100 - Infant (s) Infant A Delivery Date: 03/30/17 Infant Delivery Time: 23:46 Presentation: vertex Position: SHANE Route of delivery: Gender: Female Viability: Viable Pounds: 7 Ounces: 0 Weight Gram: 3170 kg at 1 minute: 7 at 5 mins: 10 Shoulder Dystocia: not encountered Specimens collected: cord blood Placenta: spontaneous Cord: 3 umbilical vessels - Repair Episiotomy: none Laceration Description: Labial, Superficial - Complications Delivery complications: none Delivery comments: Patient progressed to complete and began coached pushing to of viable female in the SHANE with a compound left hand. No shoulder, no nuchal cord , and no meconium encountered. placed on maternal abdomen, dried and stimulated. Cord double clamped and cut. Infant taken to prewarmed radiant warmer and assessed by the RN. Apgars 7 and 10 at one and five minutes of age respectively. Placenta delivered spontaneously. Appears grossly intact upon inspection with 3 vessel cord. Large amount of Dixie[employer] Jelly noted without any twisting to cord. Sent to pathology. Upon inspection, several small hemostatic superficial lacerations noted along with one small 1cm left labial minora laceration that was also hemostatic. All lacerations left to heal by second intention. Uterus firm, midline, and at 3 below umbilicus when inspection complete. EBL [address] Wall notified of delivery. - Disposition Mom disposition: stable in LDR disposition: stable in LDR
[2017-03-30] MEDS ORDERED: Measles/Mumps/Rubella Vacc 0.5 ML VIAL SQ PRN (02:51)
[2017-03-30] MEDS ORDERED: Acetaminophen 325 MG TABLET PO PRN (02:51)
[2017-03-30] MEDS ORDERED: Sennosides 8.6 MG TABLET PO PRN (02:51)
[2017-03-30] MEDS ORDERED: Oxytocin 20 units/ LR 1000 mL 20 UNIT/1,000 ML BAG IVC ONE (02:51)
[2017-03-30] MEDS ORDERED: Oxytocin 20 units/ LR 1000 mL 20 UNIT/1,000 ML BAG IVC SCH (02:51)
[2017-03-30] MEDS ORDERED: Benzocaine/Menthol 56 GM AEROSOL SPRAY TP PRN (02:51)
[2017-03-30] MEDS ORDERED: Lanolin 7 G OINT...G. TP PRN (02:51)
[2017-03-30] MEDS ORDERED: Rho Immune Globulin 1,500 UNIT SYRINGE IM PRN (02:51)
[2017-03-30] MEDS: Ibuprofen 600 MG TABLET PO PRN ×3 (03:18→16:30)
[2017-03-30 07:39] LABS: Basophils % 0.2 %; Eosinophils # 0.1 K/mcL (0.0-0.6); Eosinophils % 0.4 %; Hematocrit 27.1 % (35.3-44.9); Hemoglobin 7.9 g/dL (11.5-15.4); Immature Granulocytes % 0.8 % (0-4); Lymphocytes # 1.8 K/mcL (0.6-4.6); Lymphocytes % 11.4 %; Mean Corpuscular HGB Conc 29.2 g/dL (31.6-35.5); Mean Corpuscular Hemoglobin 22.8 pg (28.0-33.3); Mean Corpuscular Volume 78.3 fL (83.0-100.0); Mean Platelet Volume 11.7 fL (9.4-12.4); Monocytes # 1.5 K/mcL (0.0-1.3); Monocytes % 9.3 %; Nucleated Red Blood Cells 0.1 /100 WBC (0); Platelet Count 201 K/mcL (140-400); Red Blood Count 3.46 M/mcL (3.82-4.97); Red Cell Distribution Width 21.2 % (11.5-14.5); Segmented Neutrophils % 77.9 %
[2017-03-30 07:45] LABS: Neutrophils # 12.5 K/mcL (1.6-8.9)
[2017-03-30] MEDS: Prenatal Vit/FA 1 EACH TABLET PO SCH (09:51)
--- NOTE | 2017-03-30 11:06 | OB/GYN Progress Note ---
Date of Encounter: 03/30/17 Time of Encounter: 11:02 - Assessment and Plan (1) (normal spontaneous vaginal delivery) Current Visit: Yes Status: Acute Doing well s/p . Cont. pp care Subjective - Subjective Principal diagnosis: S/p Interval history: Doing well without c/o. Patient reports: appetite normal Sandwich: doing well Objective - Latest Vital Signs Latest vital signs: Vital Signs Temp Pulse Resp BP Pulse Ox 03/30/17 08:00 97.8 F 81 16 138/84 03/30/17 05:20 97.9 F 84 16 110/62 97 03/30/17 03:55 98.2 F 88 16 126/77 97 03/30/17 03:00 98.7 F 83 16 130/83 97 Intake and Output 03/29/17 03/30/17 03/30/17 23:59 07:59 15:59 Intake Total 0 / 0 Output Total 800 / 800 Balance -800 / -800 Intake: Oral 0 / 0 Output: Urine 800 / 800 Other: Weight 85.3 kg 80 kg Patient Weight 03/30/17 23:59 Weight 80 kg - Exam Lungs: bilateral: normal Chest: Normal S1, Normal S2 Extremities: Present: normal Uterus Position: 2 Fingers Below Umbilicus - Labs Labs: Laboratory Results - last 24 hr 03/29/17 03/29/17 03/29/17 17:23 17:23 17:29 WBC 8.3 RBC 3.91 Hgb 8.8 L Hct 30.4 L MCV 77.7 L MCH 22.5 L MCHC 28.9 L RDW 21.3 H Plt Count 260 MPV 11.2 Immature Gran % 0.2 Seg Neutrophils % 66.1 Lymphocytes % 21.5 Monocytes % 11.1 Eosinophils % 0.7 Basophils % 0.4 Neutrophils # 5.5 Lymphocytes # 1.8 Monocytes # 0.9 Eosinophils # 0.1 Basophils # 0.0 Nucleated RBCs/100 WBC 0.2 H Platelet Estimate Normal Immature Plt Fraction 11.6 H Hypochromasia Present A Anisocytosis 3+ A Glucose 109 H Urine Opiates Screen Negative Ur Barbiturates Screen Negative Ur Phencyclidine Scrn Negative Ur Amphetamines Screen Negative U Benzodiazepines Scrn Negative Urine Cocaine Screen Negative U Marijuana (THC) Screen Negative Blood Type Antibody Screen Antibody Identification Baby's Blood Type Mother's Blood Type Rhogam Indicated MTS Gel Crossmatch 03/29/17 03/30/17 03/30/17 19:46 02:38 06:49 WBC 16.1 H D RBC 3.46 L Hgb 7.9 L Hct 27.1 L MCV 78.3 L MCH 22.8 L MCHC 29.2 L RDW 21.2 H Plt Count 201 MPV 11.7 Immature Gran % 0.8 Seg Neutrophils % 77.9 Lymphocytes % 11.4 Monocytes % 9.3 Eosinophils % 0.4 Basophils % 0.2 Neutrophils # 12.5 H Lymphocytes # 1.8 Monocytes # 1.5 H Eosinophils # 0.1 Basophils # 0.0 Nucleated RBCs/100 WBC 0.1 H Platelet Estimate Immature Plt Fraction Hypochromasia Anisocytosis Glucose Urine Opiates Screen Ur Barbiturates Screen Ur Phencyclidine Scrn Ur Amphetamines Screen U Benzodiazepines Scrn Urine Cocaine Screen U Marijuana (THC) Screen Blood Type A NEGATIVE Antibody Screen POSITIVE Antibody Identification Anti-D Due to Rhogam Baby's Blood Type O RH POSITIVE Mother's Blood Type A RH NEGATIVE Rhogam Indicated YES MTS Gel Crossmatch See Detail
[2017-03-31] MEDS: Prenatal Vit/FA 1 EACH TABLET PO SCH (08:02)
[2017-03-31] MEDS: Ibuprofen 600 MG TABLET PO PRN (08:03)
[2017-03-31 08:27] LABS: Basophils # 0.1 K/mcL (0.0-0.2); Basophils % 0.3 %; Eosinophils # 0.4 K/mcL (0.0-0.6); Eosinophils % 2.3 %; Hematocrit 28.6 % (35.3-44.9); Hemoglobin 8.2 g/dL (11.5-15.4); Immature Granulocytes % 0.6 % (0-4); Immature Platelets 9.2 % (1.1-6.1); Lymphocytes # 2.6 K/mcL (0.6-4.6); Lymphocytes % 15.8 %; Mean Corpuscular HGB Conc 28.7 g/dL (31.6-35.5); Mean Corpuscular Hemoglobin 22.8 pg (28.0-33.3); Mean Corpuscular Volume 79.7 fL (83.0-100.0); Mean Platelet Volume 11.2 fL (9.4-12.4); Monocytes % 6.4 %; Neutrophils # 12.1 K/mcL (1.6-8.9); Nucleated Red Blood Cells 0.1 /100 WBC (0); Platelet Count 245 K/mcL (140-400); Red Blood Count 3.59 M/mcL (3.82-4.97); Red Cell Distribution Width 21.2 % (11.5-14.5); Segmented Neutrophils % 74.6 %
[2017-03-31 08:43] LABS: Alanine Aminotransferase 38 Units/L (0-55); Aspartate Amino Transferase 41 Units/L (5-34); BUN/Creatinine Ratio 13 (6-26); Blood Urea Nitrogen 9 mg/dL (7-20); Lactate Dehydrogenase 245 Units/L (159-327); Uric Acid 4.1 mg/dL (2.6-6.0); eGFR For African Americans > 60 (> 60); eGFR For Non-African Americans > 60 (> 60)
[2017-03-31 08:49] LABS: Anisocytosis 1+ (Not Present); Hypochromasia Present (Not Present); Platelet Estimate Normal (Normal); Polychromasia 1+ (Not Present)
[2017-03-31 08:55] VITALS: BP 121/79
--- NOTE | 2017-03-31 09:13 | Discharge Summary ---
Date of Encounter: 03/31/17 Time of Encounter: 09:15 - Discharge Diagnosis (1) Hypertension Priority: Secondary Status: Acute Qualifiers: Hypertension type: essential hypertension Qualified Code(s): I10 - Essential (primary) hypertension (2) Gestational diabetes mellitus (GDM) affecting Priority: Secondary Status: Acute (3) (normal spontaneous vaginal delivery) Priority: Primary Status: Acute (4) Anemia during Priority: Secondary Status: Acute - Discharge Medications Prescriptions: Ibuprofen [Motrin] 600 mg PO Q6HR PRN #30 tablet PRN Reason: Cramping Home Medications: Buspirone HCl [Buspar] 10 mg PO BID 02/01/17 [History] Citalopram [CeleXA] 20 mg PO BID 02/01/17 [History] Ferrous Sulfate [Iron] 325 mg PO BID 02/01/17 [History] Vit #108/Iron/FA [ One Tablet] 1 tab PO DAILY 02/01/17 [History ] Promethazine [Phenergan] 25 mg PO Q6HR 02/01/17 [History] Cyclobenzaprine [Flexeril] 10 mg PO HS 02/05/17 [History] Famotidine [Pepcid] 20 mg PO BID 02/05/17 [History] Rizatriptan Benzoate [Maxalt] 5 mg PO PRN PRN 02/05/17 [History] Ibuprofen [Motrin] 600 mg PO Q6HR PRN #30 tablet 03/31/17 [Rx] Allergies/Adverse Reactions: 3 Allergy/AdvReac Type Severity Reaction Status Date / Time No Known Allergies Allergy Verified 03/28/17 16:41 Data Procedures and tests throughout hospitalization: Laboratory Tests 03/29/17 03/29/17 03/29/17 17:23 17:23 17:29 WBC 8.3 RBC 3.91 Hgb 8.8 L Hct 30.4 L MCV 77.7 L MCH 22.5 L MCHC 28.9 L RDW 21.3 H Plt Count 260 MPV 11.2 Immature Gran % 0.2 Seg Neutrophils % 66.1 Lymphocytes % 21.5 Monocytes % 11.1 Eosinophils % 0.7 Basophils % 0.4 Neutrophils # 5.5 Lymphocytes # 1.8 Monocytes # 0.9 Eosinophils # 0.1 Basophils # 0.0 Nucleated RBCs/100 WBC 0.2 H Platelet Estimate Normal Immature Plt Fraction 11.6 H Polychromasia Hypochromasia Present A Anisocytosis 3+ A BUN Creatinine Est GFR ( Amer) Est GFR (Non-Af Amer) BUN/Creatinine Ratio Glucose 109 H Uric Acid AST ALT Lactate Dehydrogenase Urine Opiates Screen Negative Ur Barbiturates Screen Negative Ur Phencyclidine Scrn Negative Ur Amphetamines Screen Negative U Benzodiazepines Scrn Negative Urine Cocaine Screen Negative U Marijuana (THC) Screen Negative Blood Type Antibody Screen Antibody Identification Screen Baby's Blood Type Mother's Blood Type Rhogam Indicated Rhogam Req for Mother MTS Gel Crossmatch 03/29/17 03/30/17 03/30/17 19:46 02:38 06:49 WBC 16.1 H D RBC 3.46 L Hgb 7.9 L Hct 27.1 L MCV 78.3 L MCH 22.8 L MCHC 29.2 L RDW 21.2 H Plt Count 201 MPV 11.7 Immature Gran % 0.8 Seg Neutrophils % 77.9 Lymphocytes % 11.4 Monocytes % 9.3 Eosinophils % 0.4 Basophils % 0.2 Neutrophils # 12.5 H Lymphocytes # 1.8 Monocytes # 1.5 H Eosinophils # 0.1 Basophils # 0.0 Nucleated RBCs/100 WBC 0.1 H Platelet Estimate Immature Plt Fraction Polychromasia Hypochromasia Anisocytosis BUN Creatinine Est GFR ( Amer) Est GFR (Non-Af Amer) BUN/Creatinine Ratio Glucose Uric Acid AST ALT Lactate Dehydrogenase Urine Opiates Screen Ur Barbiturates Screen Ur Phencyclidine Scrn Ur Amphetamines Screen U Benzodiazepines Scrn Urine Cocaine Screen U Marijuana (THC) Screen Blood Type A NEGATIVE Antibody Screen POSITIVE Antibody Identification Anti-D Due to Rhogam Screen NEGATIVE Baby's Blood Type O RH POSITIVE Mother's Blood Type A RH NEGATIVE Rhogam Indicated YES Rhogam Req for Mother 1 MTS Gel Crossmatch See Detail 03/31/17 03/31/17 08:19 08:19 WBC 16.2 H RBC 3.59 L Hgb 8.2 L Hct 28.6 L MCV 79.7 L MCH 22.8 L MCHC 28.7 L RDW 21.2 H Plt Count 245 MPV 11.2 Immature Gran % 0.6 Seg Neutrophils % 74.6 Lymphocytes % 15.8 Monocytes % 6.4 Eosinophils % 2.3 Basophils % 0.3 Neutrophils # 12.1 H Lymphocytes # 2.6 Monocytes # 1.0 Eosinophils # 0.4 Basophils # 0.1 Nucleated RBCs/100 WBC 0.1 H Platelet Estimate Normal Immature Plt Fraction 9.2 H Polychromasia 1+ A Hypochromasia Present A Anisocytosis 1+ A BUN 9 Creatinine 0.72 Est GFR ( Amer) > 60 Est GFR (Non-Af Amer) > 60 BUN/Creatinine Ratio 13 Glucose Uric Acid 4.1 AST 41 H ALT 38 Lactate Dehydrogenase 245 Urine Opiates Screen Ur Barbiturates Screen Ur Phencyclidine Scrn Ur Amphetamines Screen U Benzodiazepines Scrn Urine Cocaine Screen U Marijuana (THC) Screen Blood Type Antibody Screen Antibody Identification Screen Baby's Blood Type Mother's Blood Type Rhogam Indicated Rhogam Req for Mother MTS Gel Crossmatch Labs on day of discharge: Labs from last 24 hours 03/31/17 03/31/17 03/30/17 08:19 08:19 02:38 WBC 16.2 H RBC 3.59 L Hgb 8.2 L Hct 28.6 L MCV 79.7 L MCH 22.8 L MCHC 28.7 L RDW 21.2 H Plt Count 245 MPV 11.2 Immature Gran % 0.6 Seg Neutrophils % 74.6 Lymphocytes % 15.8 Monocytes % 6.4 Eosinophils % 2.3 Basophils % 0.3 Neutrophils # 12.1 H Lymphocytes # 2.6 Monocytes # 1.0 Eosinophils # 0.4 Basophils # 0.1 Nucleated RBCs/100 WBC 0.1 H Platelet Estimate Normal Immature Plt Fraction 9.2 H Polychromasia 1+ A Hypochromasia Present A Anisocytosis 1+ A BUN 9 Creatinine 0.72 Est GFR ( Amer) > 60 Est GFR (Non-Af Amer) > 60 BUN/Creatinine Ratio 13 Uric Acid 4.1 AST 41 H ALT 38 Lactate Dehydrogenase 245 Screen NEGATIVE Baby's Blood Type O RH POSITIVE Mother's Blood Type A RH NEGATIVE Rhogam Indicated YES Rhogam Req for Mother 1 Date of admission: 03/29/17 17:10 Primary care physician: Renae Kahn CNP Consults: 03/30/17 02:51 Consult to Surgeon'S Assistant [CONS] Routine Comment: Vaginal delivery, consult needed Discharging clinician: Donny Wall Anticipated date of discharge: 09/24/17 - Patient Status Disposition: Home, Self-Care Condition: Good Functional capacity at discharge: independent ambulation Overall status at discharge: patient is progressing back to baseline - Discharge Instructions Follow Up With: Renae Kahn CNP [Primary Care Provider] - Courtney Redmond MD [Partnered Physician] - - Diet and Activity Activity: increase activity as tolerated Diet: advance to your usual diet Hospital Course Procedures: normal spontaneous vaginal delivery Reason for admission: active labor, rupture of membranes Delivery: Episiotomy: none Laceration: none Other procedures: none complications: none Discharge diagnosis: IUP at term delivered Hospital course: This is a 32-year-old female who presented to labor and delivery with complaints of spontaneous rupture membranes. Patient's course was complicated with hypertension and gestational diabetes. Patient's PIH labs were slightly elevated but stable patient was in active labor delivered without any complications. Patient's blood pressure stabilized by hospital day #1 and by hospital day 2 she was on no medications doing well. Patient's BPP was stable blood sugars were not obtained due to being gestational and PIH labs were within normal limits. Hemoglobin was still low at 8.2 and she is having no vaginal bleeding. Has history of blood transfusion during the that has been running low muscle . Patient's abdomen complains was discharged home with a prescription for iron sulfate and Motrin 600 mg the office in 4 weeks Time Attestation: Total time spent providing and/or coordinating discharge services: Exam - Constitutional Vitals: Temp Pulse Resp BP Pulse Ox 97.8 F 77 16 121/79 98 03/31/17 08:54 03/31/17 08:54 03/31/17 08:54 03/31/17 08:54 03/30/17 20:40 General appearance IM: A&O X 3 - Respiratory Respiratory exam: Present: CTAB - Cardiovascular Cardiovascular exam IM: Present: RRR - GI/Abdominal GI/Abdominal exam IM: normal bowel sounds - Uterus Position: At Umbilicus
== END 2017-03-31 18:05 | disposition home or self-care (01) | DRG 775 ==
LOC: 1NENULAB → 1NENUOBS 03-30 02:51
PROVIDERS: ADMIT Obstetrics & Gynecology; ATTEND Obstetrics & Gynecology